=== PATIENT | female | born 1955 | race Caucasian/White ===

== ENCOUNTER 2023-01-17 15:44 | Emergency (ER) | payer MEDICARE, BC ==
[~2023-01-17] VITALS: Ht 165.1 cm; Wt 90.9 kg
[2023-01-17 15:58] VITALS: BP 152/84
[2023-01-17] MEDS ORDERED: LIDOcaine 1% W/epiNEPHrine 1:100,000 20ml vial IJ ONE (16:25)
[2023-01-17] MEDS ORDERED: TETanus/Pertussis (Acell)/Diphther VAC/PF (Tdap-Adult) 0.5ml syringe IMVAC ONE (16:25)
[2023-01-17] MEDS ORDERED: CEPH250T PO (17:52)
== END 2023-01-17 18:56 | disposition home or self-care (01) ==
LOC: ER 15:45
DX: S81.011A Laceration without foreign body, right knee, initial encounter (principal); W22.8XXA Striking against or struck by other objects, initial encounter; Y93.89 Activity, other specified; Y92.89 Other specified places as the place of occurrence of the external cause; Y99.8 Other external cause status
CPT/HCPCS: 12002; 90471; 90715; 99283; J7030; A6449